=== PATIENT | male | born 1995 | race American Indian/Alaskan Native ===

== ENCOUNTER 2018-04-12 17:29 | Emergency (ER) | payer BC ==
[2018-04-12 17:40] VITALS: O2SAT 97
--- NOTE | 2018-04-12 18:56 | ED PDOC ---
Arrival/HPI - General Chief Complaint: Flu-like Symptoms Time Seen by Provider: 04/12/18 17:31 Historian: Patient - History of Present Illness Narrative History of Present Illness (Text): 04/12/18 18:52 22-year-old male presents today with flulike symptoms that started last night. Patient states last night he developed fevers chills body aches nasal congestion and dry cough. Patient states he's also had sore throat. He denies dizziness or weakness. Patient states she took Motrin for fever last night no medications have been taken for pain or fever today. Patient denies sick contacts. Patient states cough is dry. Patient states he's been eating and drinking well. No other complaints Past Medical History - Provider Review Nursing Documentation Reviewed: Yes - Travel History Have you recently traveled outside [place] w/in the past 3 mons?: No - Psychiatric Hx Substance Use: No Family/Social History - Physician Review Nursing Documentation Reviewed: Yes Family/Social History: Unknown Family HX Smoking Status: Never Smoked Hx Alcohol Use: No Hx Substance Use: No Allergies/Home Meds Allergies/Adverse Reactions: Allergies No Known Allergies Allergy (Verified 04/12/18 17:40) Review of Systems - Review of Systems Constitutional: Fevers. absent: Fatigue ENT: Sore Throat, Sinus Congestion Respiratory: Cough. absent: SOB Cardiovascular: absent: Chest Pain, Palpitations Gastrointestinal: absent: Abdominal Pain, Nausea, Vomiting Musculoskeletal: Other (bodyaches). absent: Arthralgias, Back Pain, Neck Pain Skin: absent: Rash, Pruritis Neurological: Headache. absent: Dizziness Psychiatric: absent: Anxiety, Depression Physical Exam Vital Signs Reviewed: Yes Vital Signs Temp Pulse Resp BP Pulse Ox 04/12/18 17:37 99.4 F 97 H 18 132/82 97 Temperature: Afebrile Blood Pressure: Normal Pulse: Regular Respiratory Rate: Normal Appearance: Positive for: Well-Appearing, Non-Toxic, Comfortable Pain Distress: None Mental Status: Positive for: Alert and Oriented X 3 - Systems Exam Head: Present: Atraumatic Conjunctiva: Present: Normal Ears: Present: Normal, NORMAL TM Mouth: Present: Moist Mucous Membranes, Normal Lips, Normal Tounge, Normal Teeth. No: Drooling, Trismus Pharnyx: Present: ERYTHEMA, EXUDATE. No: TONSILS ENLARGED, Peritonsilar Swelling, Uvular Deviation, Muffled/Hoarse Voice Nose (External): Present: Atraumatic Nose (Internal): Present: Normal Inspection Neck: Present: Normal Range of Motion, Trachea Midline. No: Lymphadenopathy Respiratory/Chest: Present: Clear to Auscultation, Good Air Exchange. No: Respiratory Distress, Accessory Muscle Use Cardiovascular: Present: Regular Rate and Rhythm, Normal S1, S2. No: Murmurs Abdomen: No: Tenderness Neurological: Present: GCS=15, Speech Normal Skin: Present: Warm, Dry, Normal Color. No: Rashes Psychiatric: Present: Alert, Oriented x 3 Medical Decision Making ED Course and Treatment: 04/12/18 18:53 Patient is nontoxic well-appearing in no distress. Vital signs are stable. low grade fever in er. toradol tylenol pt with slight exudate noted to left tonsil. will cover with amoxicillin. based on other flu symptoms with also treat with tamiflu. I advised follow up with primary care physician within the next 2 days. I advised increase fluids and return if symptoms worsen persist or if new symptoms develop. Patient verbalizes understanding of discharge instructions and need for immediate followup. all aspects of this case were discussed the attending of record. IMPRESSION; flu like symptoms, pharyngitis Motrin one tablet every 6 hours as needed for pain/fever reduction amoxicillin 3 times daily x 10 days. tamiflu; twice daily x 5 days Increase fluids Followup with primary care physician the next 2 days Follow up with the ENT specialist within the next 2 days. Return if symptoms worsen persist or if new symptoms develop - Medication Orders Current Medication Orders: Discontinued Medications Acetaminophen (Tylenol 325mg Tab) 650 mg PO STAT STA Stop: 04/12/18 18:16 Last Admin: 04/12/18 18:30 Dose: 650 mg MAR Pain/Vitals Document 04/12/18 18:30 (Rec: 04/12/18 18:31 [email or web address]) Pain Reassessment Is This A Pain ReAssessment? No Sleep Is patient sleeping during reassessment? No Presence of Pain Presence of Pain Yes Pain Scale Used Protocol: PSCALES Pain Scale Used Numeric Location Pain Location Body Site Generalized Intensity 6 Scale Used Numeric Amoxicillin (Amoxil 500 Mg Cap) 500 mg PO STAT STA; Protocol Stop: 04/12/18 18:16 Last Admin: 04/12/18 18:30 Dose: 500 mg Ketorolac Tromethamine (Toradol) 60 mg IM STAT STA Stop: 04/12/18 18:16 Last Admin: 04/12/18 18:34 Dose: 60 mg MAR Pain Assessment Document 04/12/18 18:34 (Rec: 04/12/18 18:34 [email or web address]) Pain Reassessment Is this a pain reassessment? No Sleep Is patient sleeping during reassessment? No Presence of Pain Presence of Pain Yes Pain Scale Used Protocol: PSCALES Pain Scale Used Numeric IM Administration Charges Document 04/12/18 18:34 (Rec: 04/12/18 18:34 [email or web address] Charges for Administration # of IM Administrations 1 Oseltamivir Phosphate (Tamiflu Cap) 75 mg PO STAT STA; Protocol Stop: 04/12/18 18:16 Last Admin: 04/12/18 18:30 Dose: 75 mg Disposition/Present on Arrival - Present on Arrival Any Indicators Present on Arrival: No History of DVT/PE: No History of Uncontrolled Diabetes: No Urinary Catheter: No History of Decub. Ulcer: No History Surgical Site Infection Following: None - Disposition Have Diagnosis and Disposition been Completed?: Yes Diagnosis: Flu-like symptoms, Pharyngitis Disposition: HOME/ ROUTINE Disposition Time: 18:51 Patient Plan: Discharge Condition: GOOD Discharge Instructions (ExitCare): Flu, Adult (DC), Sore Throat, Adult (DC) Additional Instructions: Motrin one tablet every 6 hours as needed for pain/fever reduction amoxicillin 3 times daily x 10 days. tamiflu; twice daily x 5 days Increase fluids Followup with primary care physician the next 2 days Follow up with the ENT specialist within the next 2 days. Return if symptoms worsen persist or if new symptoms develop Prescriptions: Amoxicillin 500 mg PO TID #30 tab Ibuprofen [Motrin] 600 mg PO Q6H PRN #20 tab PRN Reason: pain/fever reduction Oseltamivir Cap [Tamiflu] 75 mg PO BID #10 cap Referrals: [facility] [Outside] - Follow up with primary FAMILY PROVIDER,NO [Primary Care Provider] - Follow up with primary Margy Brito MD [Medical Doctor] - Follow up with primary Octavio Mills DO [Doctor Osteopathy] - Follow up with primary Forms: [employer] (Pashto), WORK NOTE
[2018-04-12 19:13] VITALS: BP 105/70; PULSE 70; RESP 16; TEMP 99
== END 2018-04-12 19:13 | disposition home or self-care (01) ==
LOC: ED 17:29
DX: J11.1 Influenza due to unidentified influenza virus with other respiratory manifestations (principal); J02.9 Acute pharyngitis, unspecified